=== PATIENT | female | born 1935 | race Caucasian/White ===

== ENCOUNTER 2017-03-22 05:20 | Inpatient (IN) ==
[2017-03-08 12:41] LABS: MANUAL DIFF NEEDED? NO; URINE MICRO REVIEW NEEDED? NO; URINE SOURCE CLEAN CATCH
[2017-03-08 12:48] LABS: BASO% 0.6 % (0.0-0.8); EOS# 0.24 X1000 (0.0-0.7); EOS% 4.4 % (0.0-10.0); HEMATOCRIT 42.4 % (37.0-47.0); IMM GRAN# 0.04 X1000 (0.0-0.04); IMM GRAN% 0.7 % (0.0-0.5); LYMPH# 1.58 X1000 (1.2-3.4); LYMPH% 29.3 % (20.5-51.1); MCH 30.9 PG (27-31); MCV 93.6 FL (81-99); MONO# 0.49 X1000 (0.11-0.59); MONO% 9.1 % (1.7-9.3); MPV 10.5 FL (7.4-10.4); NEUT% 55.9 % (42.2-75.2); PLT 297 X1000 (130-400); RBC 4.53 XMIL (4.2-5.4)
--- NOTE | 2017-03-08 12:51 | EKG Report ---
Test Performed on : 03/08/2017 12:06:37 PM Test Reason : JOINT CAMP Blood Pressure : / mmHG Vent. Rate : 075 BPM Atrial Rate : 075 BPM P-R Int : 192 ms QRS Dur : 090 ms QT Int : 388 ms P-R-T Axes : 064 -17 059 degrees QTc Int : 433 ms Normal sinus rhythm. with sinus arrhythmia. Voltage criteria for left ventricular hypertrophy Possible Lateral infarct , age undetermined Abnormal ECG When compared with ECG of 22-DEC-2015 11:35, Borderline criteria for Lateral infarct are now present Confirmed by Kemar Silva MD ([id number]) on 03/08/2017 3:25:04 PM
[2017-03-08 12:53] LABS: INR 0.99; PROTIME 10.4 Seconds (9.2-11.7); PTT 26.6 Seconds (22.0-36.0)
[2017-03-08 12:56] LABS: BILIRUBIN URINE NEGATIVE (NEGATIVE); BLOOD URINE NEGATIVE (NEGATIVE); COLOR YELLOW; GLUCOSE URINE NEGATIVE (NEGATIVE); LEUKOCYTES URINE SMALL (NEGATIVE); NITRITE URINE NEGATIVE (NEGATIVE); PH URINE 6.5; PROTEIN URINE TRACE mg/dL (NEGATIVE); SP GRAVITY URINE 1.023; TURBIDITY URINE HAZY (CLEAR); UROBILINOGEN URINE 3 mg/dL (NORMAL)
[2017-03-08 12:57] LABS: UR EPITHELIAL CELLS <10 /HPF (<10); URINE BACTERIA NEGATIVE /HPF; URINE RBC <10 /HPF (<10)
[2017-03-08 13:15] LABS: AGAP 11; BUN 15 mg/dL (8-22); CHLORIDE 103 mmol/L (98-107); COSMO 284; POTASSIUM 4.6 mmol/L (3.5-5.1); SODIUM 140 mmol/L (136-145); TCO2 26 mmol/L (25-35)
[2017-03-22] MEDS ORDERED: PEPCID ONE (09:09)
[2017-03-22] MEDS ORDERED: REGLAN ONE (09:09)
[2017-03-22] MEDS ORDERED: COLACE ONE (09:09)
[2017-03-22] MEDS ORDERED: CELEBREX ONE (09:10)
[2017-03-22] MEDS ORDERED: LR 1,000 ML ONE (09:10)
[2017-03-22] MEDS ORDERED: LYRICA ONE (09:10)
[2017-03-22] MEDS ORDERED: KEFZOL 2 GM/D5W 2 GM/50 ML IVPB ONE (09:10)
[2017-03-22] MEDS ORDERED: TOPROL XL ONE (09:45)
[2017-03-22] MEDS ORDERED: DIPRIVAN 1% 500 MG/50 ML BOTTLE ONE (10:00)
[2017-03-22] MEDS ORDERED: CYKLOKAPRON 1,000 MG/NS 1,000 MG/100 ML IVPB ONE ×2 (10:05→10:06)
[2017-03-22] MEDS ORDERED: MARCAINE 0.25% PF ONE (10:05)
[2017-03-22] MEDS ORDERED: VANCOMYCIN ONE (10:05)
[2017-03-22] MEDS ORDERED: DURAMORPH ONE (10:05)
[2017-03-22] MEDS ORDERED: SODIUM CHLORIDE 0.9% ONE (10:05)
[2017-03-22] MEDS ORDERED: TORADOL ONE (10:05)
[2017-03-22] MEDS ORDERED: EXPAREL 1.3% ONE (10:06)
[2017-03-22] MEDS ORDERED: NEOSPORIN G.U. IRRIGANT ONE (10:06)
[2017-03-22] MEDS ORDERED: FENTANYL ONE (10:07)
[2017-03-22] MEDS ORDERED: OFIRMEV 1000 MG/ISOTONIC SOLN 1,000 MG/100 ML BOTTLE ONE (10:53)
[2017-03-22] MEDS ORDERED: ZOFRAN ONE (10:54)
[2017-03-22] MEDS ORDERED: DECADRON ONE (10:54)
[2017-03-22] MEDS ORDERED: DIPRIVAN 1% ONE ×2 (11:11→11:45)
[2017-03-22 12:00] LABS: URINE MICRO REVIEW NEEDED? NO; URINE SOURCE CATH
[2017-03-22 12:09] LABS: BILIRUBIN URINE NEGATIVE (NEGATIVE); BLOOD URINE NEGATIVE (NEGATIVE); COLOR YELLOW; GLUCOSE URINE NEGATIVE (NEGATIVE); LEUKOCYTES URINE NEGATIVE (NEGATIVE); NITRITE URINE NEGATIVE (NEGATIVE); PH URINE 6.5; PROTEIN URINE TRACE mg/dL (NEGATIVE); SP GRAVITY URINE 1.022; TURBIDITY URINE CLEAR (CLEAR); UROBILINOGEN URINE NORMAL (NORMAL)
[2017-03-22 12:11] LABS: UR EPITHELIAL CELLS <10 /HPF (<10); URINE BACTERIA NEGATIVE /HPF; URINE RBC <10 /HPF (<10); URINE WBC <10 /HPF (<10)
--- NOTE | 2017-03-22 13:13 | Diag Imaging Result Doc PS360 ---
EXAM: KNEE 1-2 VIEWS-LEFT HISTORY: post op tka TECHNIQUE: Portable at 1300 AP and lateral COMMENT: There has been total knee arthroplasty. There appears to be appropriate alignment. IMPRESSION: Postsurgical change. Electronically signed by Rolly Wagner 03/22/2017 1:11 PM
[2017-03-22] MEDS ORDERED: MILK OF MAGNESIA PO PRN (13:15)
[2017-03-22] MEDS ORDERED: ZOFRAN PO PRN (13:15)
[2017-03-22] MEDS ORDERED: ZOFRAN IV PRN (13:15)
[2017-03-22] MEDS ORDERED: NS 1,000 ML ONE (13:16)
[2017-03-22] MEDS: NS 1,000 ML IV SCH (14:34)
[2017-03-22] MEDS: CENTRUM SILVER PO SCH (14:48)
[2017-03-22] MEDS: TYLENOL PO SCH ×2 (14:48→20:53)
[2017-03-22] MEDS: TRICOR PO SCH (14:49)
[2017-03-22] MEDS: CYMBALTA PO SCH ×2 (14:50→17:34)
[2017-03-22] MEDS: DIOVAN PO SCH (14:50)
[2017-03-22] MEDS: TOPROL XL PO SCH (14:51)
--- NOTE | 2017-03-22 16:47 | OPERATIVE NOTE ---
PROCEDURE DATE: 03/22/2017 PREOPERATIVE DIAGNOSIS: Degenerative arthritis left knee. POSTOPERATIVE DIAGNOSIS: Degenerative arthritis left knee. PROCEDURE: Left total knee arthroplasty with a DePuy Attune size 5 posterior stabilized femur, size 5 mm tibial tray, a 6 mm rotating platform tibial insert, and a 35 mm medialized anatomic patella. SURGEON: Clyde Grant MD. ENGRAVER: Remington Garcia. SECOND REINFORCING STEEL MACHINE OPERATOR: Radha Miguel and Simón Oneil. ANESTHESIA: Spinal. IV FLUIDS: 1500 mL lactated Ringer. ESTIMATED BLOOD LOSS: 30 mL. TOURNIQUET TIME: 80 minutes at 350 mmHg. COMPLICATIONS: None. INDICATION: The patient is an 81-year-old female with chronic history of worsening pain and discomfort over the left knee. Continued pain and discomfort despite appropriate nonoperative treatment. X-rays revealed degenerative osteoarthritis. Recommendation to proceed with right total knee arthroplasty was offered. Risks of surgery were explained, including the risks of anesthesia, , bleeding, infection, failure to relieve pain, postoperative stiffness, nerve injury, blood clots and other imponderables. All questions answered. Patient family wished to proceed with surgery. DETAILS OF OPERATION: The patient was taken to the operating room and placed supine on the operating table. Once adequate anesthesia was obtained, patient's left lower extremity was subsequently prepped and draped in usual sterile fashion. An Esmarch was used to exsanguinate the left lower extremity. The tourniquet was inflated to 350 mmHg. A standard anterior incision made with a skin knife. Medial and lateral skin envelopes were developed. Standard medial parapatellar arthrotomy was then performed. The patella fat pad was excised. Retractors were then placed superior and approximately 1 cm anterior to the PCL insertion, starting reamer was passed. Intramedullary guide with a distal femoral cutting block was pinned in position. Distal femoral cut was then performed in standard fashion. After this had been performed, a sizing block was placed and measured a size 5. Corresponding holes were drilled. A size 5 cutting block was pinned in position. Anterior, posterior, and chamfer cuts were then made. Attention was then turned to the proximal tibia. Further resection of the ACL and PCL was performed. Extramedullary guide was used to pin the proximal tibia cutting block. Had good alignment confirmed with the alignment bertha. Medial and lateral meniscus were excised. A curved osteotome was used to remove the posterior osteophytes. A spacer block was placed and good soft tissue balance in both flexion and extension. After this had been performed, a size 5 appeared to be correct size. This was pinned in position. A size 5 tibial tray was then pinned in position followed by a central reamer and a fin punch. After this had been performed, the box cutting guide was pinned on the distal femur. A box cut was then performed in standard fashion. After this had been performed, the trial femoral component was placed and 2 lug holes were drilled. Trial tibial insert was then placed and good soft tissue balancing. Patella was everted and resected in standard fashion. There appeared to be good resection. A 35 appeared to be the correct size. Corresponding holes were drilled. After this had been performed, the patella had good patellofemoral tracking. Trial components were removed. Copious irrigation was then performed with antibiotic pulsatile lavage while vancomycin was mixed in cement on back table. Sequential cementing was then performed, first the tibial tray and excess cement with a [place] followed by the femoral component. Excess cement was removed with a [place] followed by a trial tibial insert was placed and axial load was maintained while the cement cured. After cement was curing, Exparel was placed in the soft tissue as well as the subcutaneous tissue. The patella was cemented in standard fashion. After cement had cured, peripheral cement was removed with a small osteotome, a 6 mm appeared to be correct size. This was then removed. Exparel was placed in deep posterior capsule. The wound was copiously irrigated with antibiotic pulsatile lavage. This was followed by a 6 mm rotating platform tibial insert. After this had been performed, a 1/8 Hemovac drain was placed but was not sewn in. Copious irrigation performed once again followed by copious irrigation. A #1 Vicryl was used very arthrotomy followed by 2-0 Vicryl repair of subcutaneous tissue, followed by skin vianney, Adaptic, sterile 4x4s, Webril, cryo unit, and Brady wrap was applied to the left lower extremity. Patient tolerated the procedure well with no complications and transferred to the recovery room in stable condition. cc: Clyde Grant MD
[2017-03-22] MEDS: OXY IR PO PRN ×2 (17:38→20:53)
[2017-03-22] MEDS ORDERED: KEFZOL 1 GM/D5W 1 GM/50 ML IVPB IV ONE (17:51)
[2017-03-22] MEDS ORDERED: KEFZOL 1 GM/D5W 1 GM/50 ML IVPB IV SCH (18:00)
[2017-03-22] MEDS: PERIDEX MT SCH (20:53)
[2017-03-22] MEDS: REMERON PO SCH (20:54)
[2017-03-22] MEDS: ATIVAN PO SCH (20:54)
[2017-03-22] MEDS: DESYREL PO SCH (20:54)
[2017-03-22] MEDS: COLACE PO SCH (20:54)
[2017-03-23] MEDS ORDERED: KEFZOL 2 GM/D5W 2 GM/50 ML IVPB IV SCH (02:00)
[2017-03-23] MEDS: TYLENOL PO SCH ×4 (02:01→20:06)
[2017-03-23] MEDS: OXY IR PO PRN ×6 (02:02→20:06)
[2017-03-23] MEDS: NS 1,000 ML IV SCH ×2 (02:02→13:43)
[2017-03-23 06:36] LABS: AGAP 8; BUN 16 mg/dL (8-22); CALCIUM 8.4 mg/dL (8.8-10.2); CHLORIDE 106 mmol/L (98-107); COSMO 280; POTASSIUM 4.4 mmol/L (3.5-5.1); SODIUM 139 mmol/L (136-145); TCO2 25 mmol/L (25-35)
[2017-03-23] MEDS: XARELTO PO SCH (06:45)
[2017-03-23] MEDS: SYNTHROID PO SCH (06:46)
[2017-03-23 06:52] LABS: HEMATOCRIT 34.2 % (37.0-47.0); HEMOGLOBIN 11.3 g/dL (12.0-16.0)
--- NOTE | 2017-03-23 07:08 | PROGRESS NOTE ---
DATE: 03/23/2017 SUBJECTIVE: The patient is a pleasant 81-year-old female who is 1 day status post left total knee arthroplasty. Patient is currently resting comfortably. OBJECTIVE: Dressing is intact. Calf is soft. She has active dorsiflexion and plantar flexion. She is neurovascularly distally. LABORATORY DATA: Her hemoglobin is 11.1, hematocrit was 34.0. IMPRESSION: Postop day #1 status post left total knee arthroplasty. PLAN: At this time will discontinue her drain and change her dressing, as well as discontinuing her Frankel. We will mobilize physical therapy. We will consult [facility] for discharge planning for inpatient rehabilitation. cc: Clyde Grant MD
[2017-03-23] MEDS: CENTRUM SILVER PO SCH (08:51)
[2017-03-23] MEDS: DIOVAN PO SCH (08:52)
[2017-03-23] MEDS: TRICOR PO SCH (08:52)
[2017-03-23] MEDS: COLACE PO SCH ×2 (08:52→20:06)
[2017-03-23] MEDS: CYMBALTA PO SCH ×3 (08:52→16:58)
[2017-03-23] MEDS: PERIDEX MT SCH ×2 (08:52→20:05)
[2017-03-23] MEDS: PEPCID PO SCH (08:52)
[2017-03-23] MEDS: TOPROL XL PO SCH (08:52)
--- NOTE | 2017-03-23 12:51 | Diag Imaging Result Doc PS360 ---
EXAM: CHEST-1 VIEW HISTORY: rehab TECHNIQUE: AP portable upright at 1235 COMMENT: The inspiration is less optimal than on 08/13/2015. There may be atelectasis in the right middle lobe. IMPRESSION: Right middle lobe atelectasis. Electronically signed by Rolly Wagner 03/23/2017 12:49 PM
[2017-03-23] MEDS: REMERON PO SCH (20:05)
[2017-03-23] MEDS: ATIVAN PO SCH (20:06)
[2017-03-23] MEDS: DESYREL PO SCH (20:06)
[2017-03-24] MEDS: TYLENOL PO SCH ×4 (02:00→18:49)
[2017-03-24] MEDS: MORPHINE IV PRN (02:00)
[2017-03-24 05:57] LABS: HEMATOCRIT 35.9 % (37.0-47.0); HEMOGLOBIN 11.7 g/dL (12.0-16.0)
--- NOTE | 2017-03-24 07:23 | PROGRESS NOTE ---
DATE: 03/24/2017 SUBJECTIVE: The patient is an 81-year-old female who is 2 days status post left total knee arthroplasty. She is currently resting comfortably. OBJECTIVE: On physical exam, patient's left lower extremity wound looks good. There are no signs or symptoms of infection. Calf is soft. She has active dorsiflexion and plantar flexion. Her hemoglobin is 11.7, hematocrit 35.9. IMPRESSION: Postop day #2, status post left total knee arthroplasty. PLAN: At this point, patient will continue increasing her mobilization with physical therapy. We will plan on discharging to rehab tomorrow if a bed is available. cc: Clyde Grant MD
[2017-03-24] MEDS: SYNTHROID PO SCH (07:24)
[2017-03-24] MEDS: XARELTO PO SCH (07:24)
[2017-03-24] MEDS: OXY IR PO PRN (07:25)
[2017-03-24] MEDS: TOPROL XL PO SCH (09:17)
[2017-03-24] MEDS: CYMBALTA PO SCH ×3 (09:17→17:14)
[2017-03-24] MEDS: DIOVAN PO SCH (09:17)
[2017-03-24] MEDS: COLACE PO SCH ×2 (09:17→20:08)
[2017-03-24] MEDS: CENTRUM SILVER PO SCH (09:18)
[2017-03-24] MEDS: PEPCID PO SCH (09:18)
[2017-03-24] MEDS: PERIDEX MT SCH ×2 (09:18→20:09)
[2017-03-24] MEDS: TRICOR PO SCH (09:19)
--- NOTE | 2017-03-24 15:17 | DISCHARGE SUMMARY ---
ADMISSION DATE: 03/22/2017 DISCHARGE DATE: 03/27/2017 ADMITTING DIAGNOSIS: Degenerative arthritis of the left knee. DISCHARGE DIAGNOSIS: Degenerative arthritis of the left knee, status post left total knee arthroplasty. BRIEF HISTORY: The patient is an 81-year-old female with a chronic history of worsening pain and discomfort in the left knee. There is continued pain and discomfort despite appropriate nonoperative treatment. X-rays reveal degenerative arthritis and recommendation to proceed with left total knee arthroplasty was offered. Risks and benefits of surgery explained including risks of anesthesia, , bleeding infection, failure to relieve pain, postoperative stiffness, nerve injury, blood clots, and other imponderables. All questions answered. The patient and family wished to proceed with surgery. HOSPITAL COURSE AND TREATMENT: The patient was admitted to the hospital and underwent left total knee arthroplasty. She tolerated the procedure well. The patient had an uneventful postop course. By postoperative day #3, her hemoglobin and hematocrit stabilized to 11.4 and 34.4. Vital signs were stable. The patient was slow to mobilize with physical therapy, and it was felt she would benefit from inpatient rehabilitation. The patient and family were agreeable to this. Prior to discharge, the patient is afebrile, tolerating regular diet. Wound looked good. There are no signs or symptoms of infection, and she was slowly mobilized with physical therapy. DISCHARGE MEDICATIONS: 1. OxyIR 5 mg 1 p.o. q.4 hours p.r.n. pain. 2. Xarelto 10 mg p.o. q daily x2 weeks. For remaining medications, please see medication list. DISCHARGE INSTRUCTIONS: 1. The patient will be discharged for inpatient rehabilitation. 2. Consult physical therapy for full weightbearing left lower extremity and range of motion exercises and gait training per total knee protocol. 3. Discontinue vianney in 11 days. 4. Follow up in the office in 3-4 weeks. cc: Clyde Grant MD MTDD
[2017-03-24] MEDS: DESYREL PO SCH (20:08)
[2017-03-24] MEDS: REMERON PO SCH (20:08)
[2017-03-24] MEDS: ATIVAN PO SCH (20:09)
[2017-03-25] MEDS: TYLENOL PO SCH ×5 (00:34→21:58)
[2017-03-25] MEDS: OXY IR PO PRN ×2 (04:24→13:38)
[2017-03-25 05:40] LABS: HEMATOCRIT 34.4 % (37.0-47.0); HEMOGLOBIN 11.4 g/dL (12.0-16.0)
[2017-03-25] MEDS: SYNTHROID PO SCH ×2 (05:51→06:27)
[2017-03-25] MEDS: XARELTO PO SCH (05:51)
--- NOTE | 2017-03-25 08:12 | PROGRESS NOTE ---
DATE: 03/25/2017 SUBJECTIVE: Patient is a pleasant 81-year-old female who is 3 days status post left total knee arthroplasty. She is currently resting comfortably and has no complaints. PHYSICAL EXAMINATION: The left knee wound looks good. There are no signs or symptoms of infection. Her calf is soft. She has active dorsiflexion and plantar flexion. Her hemoglobin is 11.4 and hematocrit is 34.4. IMPRESSION: Postop day #3, status post left total knee arthroplasty. PLAN: At this point, we will plan on discharging for inpatient rehabilitation. cc: Clyde Grant MD
[2017-03-25] MEDS: TRICOR PO SCH (08:14)
[2017-03-25] MEDS: PERIDEX MT SCH ×2 (08:14→21:59)
[2017-03-25] MEDS: CYMBALTA PO SCH ×3 (08:14→17:23)
[2017-03-25] MEDS: PEPCID PO SCH (08:14)
[2017-03-25] MEDS: CENTRUM SILVER PO SCH (08:15)
[2017-03-25] MEDS: COLACE PO SCH ×2 (08:15→21:58)
[2017-03-25] MEDS: MORPHINE IV PRN (08:15)
[2017-03-25] MEDS: TOPROL XL PO SCH (08:15)
[2017-03-25] MEDS: DIOVAN PO SCH (08:15)
[2017-03-25] MEDS: DESYREL PO SCH (21:58)
[2017-03-25] MEDS: REMERON PO SCH (21:58)
[2017-03-25] MEDS: ATIVAN PO SCH (21:58)
[2017-03-26] MEDS: TYLENOL PO SCH ×5 (01:00→22:12)
[2017-03-26] MEDS: SYNTHROID PO SCH (06:25)
[2017-03-26] MEDS: XARELTO PO SCH (06:25)
--- NOTE | 2017-03-26 08:15 | PROGRESS NOTE ---
DATE: 03/26/2017 SUBJECTIVE: Ms. Ricci is lying in bed this morning. Overall pain is under control. She is getting a little bit of pain in the knee when she moves it. OBJECTIVE: Left Lower Extremity Examination: Dressing just has a little bit of drainage at the very inferior aspect of the dressing. Knee is not that swollen overall. Calf is supple. She has good dorsiflexion and plantarflexion of the foot. Good sensation to light touch to the toes and 2+ DP pulse to the foot. ASSESSMENT: Status post left total knee arthroplasty. PLAN: I think Ms. Ricci is doing well. Plan is for her to go to inpatient rehab either today or tomorrow. She will continue to get up with therapy here before she goes. cc: MD Clyde oRbles MD
[2017-03-26] MEDS: OXY IR PO PRN ×3 (09:37→20:14)
[2017-03-26] MEDS: COLACE PO SCH ×2 (09:38→20:14)
[2017-03-26] MEDS: PEPCID PO SCH (09:38)
[2017-03-26] MEDS: DIOVAN PO SCH (09:38)
[2017-03-26] MEDS: CENTRUM SILVER PO SCH (09:38)
[2017-03-26] MEDS: CYMBALTA PO SCH ×3 (09:38→16:01)
[2017-03-26] MEDS: TRICOR PO SCH (09:38)
[2017-03-26] MEDS: TOPROL XL PO SCH (09:38)
[2017-03-26] MEDS: PERIDEX MT SCH ×2 (09:38→20:18)
[2017-03-26] MEDS: REMERON PO SCH (20:14)
[2017-03-26] MEDS: ATIVAN PO SCH (20:14)
[2017-03-26] MEDS: DESYREL PO SCH (20:15)
[2017-03-27] MEDS: TYLENOL PO SCH ×3 (00:14→06:33)
[2017-03-27] MEDS: SYNTHROID PO SCH ×2 (05:55→06:32)
[2017-03-27] MEDS: XARELTO PO SCH (05:55)
--- NOTE | 2017-03-27 06:55 | PROGRESS NOTE ---
DATE: 03/27/2017 SUBJECTIVE: The patient is a pleasant 81-year-old female, who is 5 days status post left total knee arthroplasty. She is sitting in chair resting comfortably. OBJECTIVE: Left lower extremity: Her wound looks good. There is no signs or symptoms of infection. She is neurovascularly throughout. IMPRESSION: Postoperative day #5 status post left total knee arthroplasty. PLAN: At this point, the patient be discharged for inpatient rehabilitation today. cc: Clyde Grant MD
[2017-03-27] MEDS: DIOVAN PO SCH (08:15)
[2017-03-27] MEDS: CENTRUM SILVER PO SCH (08:15)
[2017-03-27] MEDS: PERIDEX MT SCH (08:15)
[2017-03-27] MEDS: COLACE PO SCH (08:16)
[2017-03-27] MEDS: CYMBALTA PO SCH (08:16)
[2017-03-27] MEDS: PEPCID PO SCH (08:16)
[2017-03-27] MEDS: TRICOR PO SCH (08:16)
[2017-03-27] MEDS: TOPROL XL PO SCH (08:16)
[2017-03-27 12:20] VITALS: BP 132/72
== END 2017-03-27 12:20 ==
LOC: SURHOLD 05:20 → 4N 11:50
PROVIDERS: ADMIT Orthopaedic Surgery Adult Reconstructive Orthopaedic Surgery; ATTEND Orthopaedic Surgery Adult Reconstructive Orthopaedic Surgery